=== PATIENT | female | born 1995 ===

== ENCOUNTER 2021-12-09 14:01 | Emergency (ER) | payer OTHER ==
[2021-12-09 15:58] VITALS: BP 139/74
--- NOTE | 2021-12-09 16:55 | Event Note ---
ED Screening Note ED Screening Note: LMP 09-19-22 HAD POS HOME PREG TEST FELL LAST WEDNESDAY AND SINCE THEN HAS HAD SOME VAG BLEEDING AND PAIN. AMBULATORY NON ILL NON TOXIC HAS NOT SEEN OBGYN This initial assessment/diagnostic orders/clinical plan/treatment(s) is/are subject to change based on patients health status, clinical progression and re- assessment by fellow clinical providers in the ED. Further treatment and workup at subsequent clinical providers discretion. Patient/guardian urged not to elope from the ED as their condition may be serious if not clinically assessed and managed. Initial orders include: [facility] LABS THEN EVAL FOR NEED FOR U/S
[2021-12-09 17:18] LABS: Hematocrit 38.2 % (30.3-42.9); Hemoglobin 12.6 gm/dl (10.1-14.3); Mean Corpuscular HGB Conc 33 % (30-34); Mean Corpuscular Volume 84 fl (79-97); Platelet Count 322 K/mm3 (140-440); Red Blood Count 4.54 M/mm3 (3.65-5.03); Red Cell Distribution Width 13.3 % (13.2-15.2)
[2021-12-09 17:34] LABS: Blood Urea Nitrogen 5 mg/dL (7-17); Hemolysis Index 0
[2021-12-09 17:41] LABS: BUN/Creatinine Ratio 8
== END 2021-12-09 23:45 | disposition left against medical advice (07) ==
LOC: ED 14:01
DX: O26.891 Other specified pregnancy related conditions, first trimester (principal); R10.9 Unspecified abdominal pain; Z53.21 Procedure and treatment not carried out due to patient leaving prior to being seen by health care provider; Z3A.00 Weeks of gestation of pregnancy not specified
CPT/HCPCS: 36415; 80048; 84702; 85027; 86900; 86901